=== PATIENT | male | born 1955 | race Caucasian/White ===

== ENCOUNTER 2021-09-20 21:30 | Emergency (ER) | payer OTHER ==
[~2021-09-20] VITALS: Ht 175.3 cm; Wt 103.8 kg
[2021-09-20] MEDS ORDERED: ondansetron/PF 4mg/2ml inj IV ONE (22:05)
[2021-09-20] MEDS ORDERED: ketorolac trometh. 30mg/ml inj. IV ONE (22:05)
[2021-09-20] MEDS ORDERED: normal saline 1000ML IV soln IVB ONE (22:05)
[2021-09-20 22:16] LABS: BASOPHILS # (AUTO) 0.1 X10'3 (0-0.2); BASOPHILS % (AUTO) 0.4 % (0-1); EOSINOPHILS % (AUTO) 0.2 % (0-6); HEMATOCRIT 42.8 % (42.0-52.0); HEMOGLOBIN 14.2 g/dl (14.0-17.9); LYMPHOCYTES # (AUTO) 1.1 X10'3 (1.1-4.8); LYMPHOCYTES % (AUTO) 6.5 % (21-51); MEAN CORPUSCULAR HEMOGLOBIN 28.9 PG (27.0-31.0); MEAN CORPUSCULAR HGB CONC 33.2 g/dL (33.0-36.5); MEAN CORPUSCULAR VOLUME 87.2 FL (78-98); MEAN PLATELET VOLUME 7.4 FL (7.4-10.4); MONOCYTES # (AUTO) 0.7 X10'3 (0-0.9); MONOCYTES % (AUTO) 4.4 % (2-12); NEUTROPHILS % (AUTO) 88.5 % (42-75); PLATELET COUNT 331 X10'3 (140-440); RED BLOOD COUNT 4.91 X10'6 (4.70-6.10); RED CELL DISTRIBUTION WIDTH 13.8 % (11.5-14.5); WHITE BLOOD COUNT 16.9 X10'3 (4.5-11.0)
[2021-09-20 22:38] LABS: ALANINE AMINOTRANSFERASE 37 U/L (12-78); ALBUMIN/GLOBULIN RATIO 1.7 (1.1-1.5); ALKALINE PHOSPHATASE 72 IU/L (46-116); ANION GAP 10 (8-16); ASPARTATE AMINO TRANSFERASE 19 U/L (10-37); BILIRUBIN,TOTAL 0.2 MG/DL (0.1-1.0); BLOOD UREA NITROGEN 24 MG/DL (7-18); BUN/CREATININE RATIO 17.9 (5.4-32.0); CALCIUM 8.9 MG/DL (8.5-10.1); CHLORIDE 111 MMOL/L (99-107); CREATININE 1.34 MG/DL (0.60-1.10); GLUCOSE 111 MG/DL (70-104); POTASSIUM 4.1 MMOL/L (3.5-5.1); SODIUM 144 MMOL/L (135-145); TOTAL CARBON DIOXIDE 23.5 MMOL/L (24-32); TOTAL PROTEIN 6.3 G/DL (6.4-8.2); eGFR 54 ML/MIN
[2021-09-20 22:49] LABS: CLARITY,URINE CLEAR (Clear); COLOR,URINE YELLOW (Yellow); GLUCOSE, URINE 500 mg/dl (Neg); KETONES,URINE NEGATIVE (Neg); LEUKOCYTE ESTERASE ,URINE NEGATIVE (Neg); NITRITES, URINE NEGATIVE (Neg); OCCULT BLOOD,URINE LARGE (Neg); PROTEIN,URINE NEGATIVE (Neg); UROBILINOGEN,URINE 0.2 E.U/dL (0.2-1.0)
[2021-09-20 22:55] LABS: UA COLLECTION TYPE CLN CATCH MIDSTREAM
[2021-09-20 22:56] LABS: WBC,URINE 0-4 /HPF (0-4)
[2021-09-20 22:57] LABS: BACTERIA,URINE FEW /HPF (Neg); MUCUS STRANDS MODERATE /LPF (Neg); RBC,URINE 20-50 /HPF (0-2); SQUAMOUS EPITHELIAL CELL,UR FEW /LPF (FEW)
--- NOTE | 2021-09-20 23:03 | NUR ---
PT ROOMED IN BED 10, ASSUMED CARE OF PT
[2021-09-21] MEDS ORDERED: TADA20TA PO
[2021-09-21] MEDS ORDERED: ONDA4TAB12 PO
[2021-09-21] MEDS ORDERED: LEVO500T90 PO
[2021-09-21] MEDS ORDERED: KETO10TA2 PO
[2021-09-21 00:57] VITALS: BP 125/85
== END 2021-09-21 00:58 | disposition home or self-care (01) ==
LOC: ER 21:32
DX: N20.1 Calculus of ureter (principal); N28.9 Disorder of kidney and ureter, unspecified; M54.50 Low back pain, unspecified; R11.0 Nausea; R10.31 Right lower quadrant pain; Z88.5 Allergy status to narcotic agent; Z79.2 Long term (current) use of antibiotics; Z79.899 Other long term (current) drug therapy
CPT/HCPCS: 36415; 74176; 80053; 81001; 85025; 96361; 96374; 99284; J1885; J7030